=== PATIENT | male | born 2000 | race Caucasian/White ===

== ENCOUNTER 2022-07-08 00:45 | Emergency (ER) | payer OTHER ==
[2022-07-08 02:02] LABS: Bilirubin Neg (Negative); Blood, Urine Negative (Negative); Clarity Clear (Clear); Glucose, Urine (Dipstick) Normal (Negative); Ketone, Urine Negative (Negative); Leukocyte Negative (Negative); Nitrite Negative (Negative); Protein, Urine (Dipstick) Negative (Neg-Trace); Urobilinogen Normal mg/dL (Less than 2)
== END 2022-07-08 02:49 | disposition home or self-care (01) ==
LOC: CSHERS 00:45
DX: N50.811 Right testicular pain (principal)
CPT/HCPCS: 76870; 81003